=== PATIENT | female | born 1965 | race American Indian/Alaskan Native ===

== ENCOUNTER 2019-06-17 13:52 | Emergency (ER) | payer SELFPAY ==
--- NOTE | 2019-06-17 14:20 | Event Note ---
ED Screening Note Date of service: 06/17/19 Time: 14:18 ED Screening Note: 54 y o f presents with vaginal pain and burning with urination with inability to control her urine This initial assessment/diagnostic orders/clinical plan/treatment(s) is/are subject to change based on patients health status, clinical progression and re- assessment by fellow clinical providers in the ED. Further treatment and workup at subsequent clinical providers discretion. Patient/guardian urged not to elope from the ED as their condition may be serious if not clinically assessed and managed. Initial orders include: ua
[2019-06-17 15:48] LABS: Bacteria,Urine 2+ /HPF (Negative); Bilirubin,Urine NEG (Negative); Blood,Urine LG (Negative); Color,Urine Yellow (Yellow); Mucus,Urine FEW /HPF; Urobilinogen,Urine < 2.0 mg/dL (<2.0)
[2019-06-17 15:51] LABS: WBC,Urine > 182.0 /HPF (0.0-6.0)
[2019-06-17 18:32] VITALS: BP 134/70
--- NOTE | 2019-06-17 18:49 | Emergency Department Report ---
HPI - General Chief Complaint: Urogenital-Female Time Seen by Provider: 06/17/19 17:58 - HPI HPI: 54 yo AA F presents to the ED with the complaint of a 5-6 day history of lower abdominal pain, burning with urination, and very dark urine. She has not taken anything for her symptoms prior to presentation. She denies any fever, nausea, vomiting, back pain. The patient also says she saw as small amount of blood when wiping herself after urinating. No PCP. She has a pmhx of bipolar disorder but says she is not here for mental health issues and "I'm stable." ED Past Medical Hx - Past Medical History Previous Medical History?: Yes Hx Psychiatric Treatment: Yes (Bipolar) Additional medical history: arrhythmia - Surgical History Past Surgical History?: Yes Additional Surgical History: Ectopic - Social History Smoking Status: Current Every Day Smoker Substance Use Type: Prescribed - Medications Home Medications: Home Medications Medication Instructions Recorded Confirmed Last Taken Type Phenazopyridine [Pyridium] 100 mg PO TID #6 tab 06/17/19 Unknown Rx Sulfamethoxazole/Trimethoprim 1 each PO BID #14 tablet 06/17/19 Unknown Rx [Bactrim DS TAB] ED Review of Systems ROS: Stated complaint: PALPITATION/CHEST PX/BURN URINATE Other details as noted in HPI Comment: All other systems reviewed and negative Constitutional: denies: chills, fever Respiratory: denies: shortness of breath Cardiovascular: denies: chest pain Gastrointestinal: abdominal pain. denies: nausea, vomiting Genitourinary: dysuria, hematuria Musculoskeletal: denies: back pain, arthralgia Physical Exam - Physical Exam Vital Signs: Vital Signs 06/17/19 06/17/19 06/17/19 14:00 16:42 17:00 Temperature 98.4 F 98.3 F Pulse Rate 88 82 81 Respiratory 20 18 22 Rate Blood Pressure 139/71 123/67 Blood Pressure 129/80 [Right] O2 Sat by Pulse 98 98 98 Oximetry 06/17/19 06/17/19 17:30 18:00 Temperature Pulse Rate 80 83 Respiratory 22 26 H Rate Blood Pressure 116/63 134/70 Blood Pressure [Right] O2 Sat by Pulse 96 97 Oximetry Physical Exam: GENERAL: The patient is well-developed well-nourished. HEENT: Normocephalic. Atraumatic. Patient has moist mucous membranes. EYES: Extraocular motions are intact. NECK: Supple. Trachea is midline. CHEST/LUNGS: Clear to auscultation. There is no respiratory distress noted. HEART/CARDIOVASCULAR: Regular. There is no tachycardia. ABDOMEN: Abdomen is soft. Mild lower abdominal/suprapubic tenderness to palpation. No guarding. Patient has normal bowel sounds. There is no abdominal distention. SKIN: Skin is warm and dry. NEURO: The patient is awake, alert, and oriented. The patient is cooperative. The patient has no focal neurologic deficits. The patient has normal speech. MUSCULOSKELETAL: There is no tenderness or deformity. There is no evidence of acute injury. ED Course Vital Signs 06/17/19 06/17/19 06/17/19 14:00 16:42 17:00 Temperature 98.4 F 98.3 F Pulse Rate 88 82 81 Respiratory 20 18 22 Rate Blood Pressure 139/71 123/67 Blood Pressure 129/80 [Right] O2 Sat by Pulse 98 98 98 Oximetry 06/17/19 06/17/19 17:30 18:00 Temperature Pulse Rate 80 83 Respiratory 22 26 H Rate Blood Pressure 116/63 134/70 Blood Pressure [Right] O2 Sat by Pulse 96 97 Oximetry ED Medical Decision Making - Medical Decision Making This patient complains of a five-day history of some lower abdominal discomfort, burning with urination and a small amount of blood seen when wiping herself after urinating. Patient has a significant urinary tract infection which is most likely the cause of all of her symptoms. She does not have any flank or back pain, fever, nausea or vomiting with concern for pyelonephritis. Vital signs are stable including being afebrile. Patient has been placed on antibiotics and Pyridium. She has been given referrals for primary care and instructed to follow-up for a repeat urinalysis after finishing her treatment. If she still has blood at that time that she may need to see a urologist. She will return to the ER with any worsening of her symptoms or any acute distress. - Differential Diagnosis UTI, interstitial cystitis, nephrolithiasis Critical Care Time: No Critical care attestation.: If time is entered above; I have spent that time in minutes in the direct care of this critically ill patient, excluding procedure time. ED Disposition Clinical Impression: UTI (urinary tract infection) Qualifiers: Urinary tract infection type: acute cystitis Hematuria presence: with hematuria Qualified Code(s): N30.01 - Acute cystitis with hematuria Hematuria Qualifiers: Hematuria type: unspecified type Qualified Code(s): R31.9 - Hematuria, unspecified Disposition: TO HOME OR SELFCARE Is pt being admited?: No Condition: Stable Instructions: Urinary Tract Infection in Women (ED), Acute Hematuria (ED) Additional Instructions: Please follow up with a primary care physician in the next few days. Return to the ED with any worsening of your symptoms or any acute distress. Take the antibiotics as prescribed. The pyridium, which is a medication for bladder spasm and pain, can make your urine and secretions appear orange-brown. Prescriptions: Sulfamethoxazole/Trimethoprim [Bactrim DS TAB] 1 each PO BID #14 tablet Phenazopyridine [Pyridium] 100 mg PO TID #6 tab Referrals: SARA HUTCHINSON MD [Staff Physician] - 3-5 Days [facility] [Outside] - 3-5 Days Time of Disposition: 18:48
== END 2019-06-17 18:53 | disposition home or self-care (01) ==
LOC: ED 13:52
DX: N39.0 Urinary tract infection, site not specified (principal); F17.200 Nicotine dependence, unspecified, uncomplicated; F31.9 Bipolar disorder, unspecified; Z91.013 Allergy to seafood
CPT/HCPCS: 81001

== ENCOUNTER 2019-09-28 08:53 | Emergency (ER) | payer SELFPAY ==
[2019-09-28 09:35] VITALS: BP 145/74
--- NOTE | 2019-09-28 10:50 | XRay Report ---
CHEST 1 VIEW 09/28/2019 10:28 AM INDICATION / CLINICAL INFORMATION: Chest Pain. COMPARISON: None available. FINDINGS: SUPPORT DEVICES: None. HEART / MEDIASTINUM: No significant abnormality. LUNGS / PLEURA: No significant pulmonary or pleural abnormality. No pneumothorax. ADDITIONAL FINDINGS: No significant additional findings. IMPRESSION: 1. No acute abnormality of the chest. Signer Name: Rolan Acuna MD Signed: 09/28/2019 10:46 AM Workstation Name: [id number]
[2019-09-28 11:29] LABS: Basophils # (Auto) 0.3 K/mm3 (0.0-0.1); Eosinophils # (Auto) 0.2 K/mm3 (0.0-0.4); Eosinophils % (Auto) 1.9 % (0.0-4.3); Hematocrit 40.7 % (30.3-42.9); Hemoglobin 13.5 gm/dl (10.1-14.3); Lymphocytes % (Auto) 21.7 % (13.4-35.0); Mean Corpuscular HGB Conc 33 % (30-34); Mean Corpuscular Volume 81 fl (79-97); Monocytes # (Auto) 0.4 K/mm3 (0.0-0.8); Monocytes % (Auto) 4.3 % (0.0-7.3); Platelet Count 333 K/mm3 (140-440); Red Blood Count 5.04 M/mm3 (3.65-5.03); Red Cell Distribution Width 15.8 % (13.2-15.2)
--- NOTE | 2019-09-28 11:30 | Emergency Department Report ---
ED General Adult HPI - General Chief complaint: Chest Pain Stated complaint: CHEST PAIN Time Seen by Provider: 09/28/19 09:52 Source: patient, EMS Mode of arrival: Wheelchair Limitations: No Limitations - History of Present Illness Initial comments: The patient presents to the emergency department the chief complaint of substernal chest pain that has been present continuously for the last week. Patient describes the pain as tightness and pressure-like without any radiation. Patient denies any nausea vomiting. Patient also complains of some wheezing secondary to asthma states she does not have an albuterol inhaler at home. Patient states her chest pain coincided with the passing of her sister from a heart attack 2 weeks ago. -: Sudden Location: chest Radiation: non-radiation Severity scale (0 -10): 4 Quality: other (pressure) Consistency: constant Improves with: none Worsens with: none Associated Symptoms: denies other symptoms Treatments Prior to Arrival: none - Related Data Previous Rx's Medication Instructions Recorded Last Taken Type Phenazopyridine [Pyridium] 100 mg PO TID #6 tab 06/17/19 Unknown Rx Sulfamethoxazole/Trimethoprim 1 each PO BID #14 tablet 06/17/19 Unknown Rx [Bactrim DS TAB] Albuterol INH(or & Nicu Only) 2 puff IH Q4HR PRN #1 inhalation 09/28/19 Unknown Rx [ProAir HFA Inhaler] Allergies Allergy/AdvReac Type Severity Reaction Status Date / Time shellfish derived Allergy Hives Verified 06/17/19 13:58 ED Review of Systems ROS: Stated complaint: CHEST PAIN Other details as noted in HPI Comment: All other systems reviewed and negative Constitutional: denies: chills, fever Eyes: denies: eye pain, eye discharge, vision change ENT: denies: ear pain, throat pain Respiratory: denies: cough, shortness of breath, wheezing Cardiovascular: chest pain. denies: palpitations Endocrine: no symptoms reported Gastrointestinal: denies: abdominal pain, nausea, diarrhea Genitourinary: denies: urgency, dysuria, discharge Musculoskeletal: denies: back pain, joint swelling, arthralgia Skin: denies: rash, lesions Neurological: denies: headache, weakness, paresthesias Psychiatric: denies: anxiety, depression Hematological/Lymphatic: denies: easy bleeding, easy bruising ED Past Medical Hx - Past Medical History Hx Psychiatric Treatment: Yes (Bipolar) Additional medical history: arrhythmia - Surgical History Additional Surgical History: Ectopic - Social History Smoking Status: Current Every Day Smoker Substance Use Type: None - Medications Home Medications: Home Medications Medication Instructions Recorded Confirmed Last Taken Type Phenazopyridine [Pyridium] 100 mg PO TID #6 tab 06/17/19 Unknown Rx Sulfamethoxazole/Trimethoprim 1 each PO BID #14 tablet 06/17/19 Unknown Rx [Bactrim DS TAB] Albuterol INH(or & Nicu Only) 2 puff IH Q4HR PRN #1 inhalation 09/28/19 Unknown Rx [ProAir HFA Inhaler] ED Physical Exam - General Limitations: No Limitations General appearance: alert, in no apparent distress - Head Head exam: Present: atraumatic, normocephalic - Eye Eye exam: Present: normal appearance, PERRL, EOMI - ENT ENT exam: Present: mucous membranes moist - Neck Neck exam: Present: normal inspection - Respiratory Respiratory exam: Present: wheezes. Absent: respiratory distress - Cardiovascular Cardiovascular Exam: Present: regular rate, normal rhythm. Absent: systolic murmur, diastolic murmur, rubs, gallop - GI/Abdominal GI/Abdominal exam: Present: soft, normal bowel sounds - Extremities Exam Extremities exam: Present: normal inspection - Back Exam Back exam: Present: normal inspection - Neurological Exam Neurological exam: Present: alert, oriented X3, CN II-XII intact. Absent: motor sensory deficit - Psychiatric Psychiatric exam: Present: normal affect, normal mood - Skin Skin exam: Present: warm, dry, intact, normal color. Absent: rash ED Course Vital Signs 09/28/19 09/28/19 09/28/19 09:00 09:30 09:31 Temperature 97.9 F 98.2 F Pulse Rate 80 79 Respiratory 20 17 15 Rate Blood Pressure 136/69 145/74 Blood Pressure 145/74 [Right] O2 Sat by Pulse 95 99 Oximetry 09/28/19 09/28/19 09:45 10:00 Temperature Pulse Rate 76 70 Respiratory 18 16 Rate Blood Pressure 145/74 145/74 Blood Pressure [Right] O2 Sat by Pulse 98 98 Oximetry ED Medical Decision Making - Lab Data Result diagrams: 09/28/19 11:11 09/28/19 11:11 Lab Results 09/28/19 09/28/19 09/28/19 Range/Units 11:11 11:11 11:11 WBC 9.4 (4.5-11.0) K/mm3 RBC 5.04 H (3.65-5.03) M/mm3 Hgb 13.5 (10.1-14.3) gm/dl Hct 40.7 (30.3-42.9) % MCV 81 (79-97) fl MCH 27 L (28-32) pg MCHC 33 (30-34) % RDW 15.8 H (13.2-15.2) % Plt Count 333 (140-440) K/mm3 Lymph % (Auto) 21.7 (13.4-35.0) % Toombs % (Auto) 4.3 (0.0-7.3) % Eos % (Auto) 1.9 (0.0-4.3) % Baso % (Auto) 3.0 H (0.0-1.8) % Lymph # 2.0 (1.2-5.4) K/mm3 Toombs # 0.4 (0.0-0.8) K/mm3 Eos # 0.2 (0.0-0.4) K/mm3 Baso # 0.3 H (0.0-0.1) K/mm3 Seg Neutrophils % 69.1 (40.0-70.0) % Seg Neutrophils # 6.5 (1.8-7.7) K/mm3 PT 14.4 (12.2-14.9) Sec. INR 1.11 (0.87-1.13) APTT 25.8 (24.2-36.6) Sec. Sodium 138 (137-145) mmol/L Potassium 4.8 (3.6-5.0) mmol/L Chloride 105.9 (98-107) mmol/L Carbon Dioxide 25 (22-30) mmol/L Anion Gap 12 mmol/L BUN 8 (7-17) mg/dL Creatinine 0.5 L (0.7-1.2) mg/dL Estimated GFR > 60 ml/min BUN/Creatinine Ratio 16 % Glucose 103 H (65-100) mg/dL Calcium 8.7 (8.4-10.2) mg/dL Total Bilirubin 0.40 (0.1-1.2) mg/dL AST 15 (5-40) units/L ALT 8 (7-56) units/L Alkaline Phosphatase 86 (35-129) units/L Troponin T < 0.010 (0.00-0.029) ng/mL Total Protein 6.6 (6.3-8.2) g/dL Albumin 3.6 L (3.9-5) g/dL Albumin/Globulin Ratio 1.2 % Lipase 21 (13-60) units/L 09/28/19 Range/Units 11:11 WBC (4.5-11.0) K/mm3 RBC (3.65-5.03) M/mm3 Hgb (10.1-14.3) gm/dl Hct (30.3-42.9) % MCV (79-97) fl MCH (28-32) pg MCHC (30-34) % RDW (13.2-15.2) % Plt Count (140-440) K/mm3 Lymph % (Auto) (13.4-35.0) % [place]ombs % (Auto) (0.0-7.3) % Eos % (Auto) (0.0-4.3) % Baso % (Auto) (0.0-1.8) % Lymph # (1.2-5.4) K/mm3 [place]ombs # (0.0-0.8) K/mm3 Eos # (0.0-0.4) K/mm3 Baso # (0.0-0.1) K/mm3 Seg Neutrophils % (40.0-70.0) % Seg Neutrophils # (1.8-7.7) K/mm3 PT (12.2-14.9) Sec. INR (0.87-1.13) APTT (24.2-36.6) Sec. Sodium (137-145) mmol/L Potassium (3.6-5.0) mmol/L Chloride (98-107) mmol/L Carbon Dioxide (22-30) mmol/L Anion Gap mmol/L BUN (7-17) mg/dL Creatinine (0.7-1.2) mg/dL Estimated GFR ml/min BUN/Creatinine Ratio % Glucose (65-100) mg/dL Calcium (8.4-10.2) mg/dL Total Bilirubin (0.1-1.2) mg/dL AST (5-40) units/L ALT (7-56) units/L Alkaline Phosphatase (35-129) units/L Troponin T < 0.010 (0.00-0.029) ng/mL Total Protein (6.3-8.2) g/dL Albumin (3.9-5) g/dL Albumin/Globulin Ratio % Lipase (13-60) units/L - EKG Data -: EKG Interpreted by Me EKG shows normal: sinus rhythm Rate: normal - Radiology Data Radiology results: report reviewed - Medical Decision Making Discussed with the patient that her chest pain likely be due to the increased risk since the passing of her sister 2 weeks ago. Discussed plan of care with patient Critical care attestation.: If time is entered above; I have spent that time in minutes in the direct care of this critically ill patient, excluding procedure time. ED Disposition Clinical Impression: Nonspecific chest pain Disposition: DC- TO HOME OR SELFCARE Is pt being admited?: No Does the pt Need Aspirin: No Condition: Stable Instructions: Noncardiac Chest Pain (ED), Chest Pain (ED) Additional Instructions: return if worse Referrals: PRIMARY MD JENELLE [Primary Care Provider] - 3-5 Days FRANKIE CANTU MD [Staff Physician] - 3-5 Days [facility], [Provider Group] - 3-5 Days [facility] [Provider Group] - 3-5 Days Time of Disposition: 13:30
[2019-09-28 11:37] LABS: INR 1.11 (0.87-1.13); Partial Thromboplastin Time 25.8 Sec. (24.2-36.6)
[2019-09-28 11:51] LABS: Alanine Aminotransferase 8 units/L (7-56); Albumin 3.6 g/dL (3.9-5); BUN/Creatinine Ratio 16; Blood Urea Nitrogen 8 mg/dL (7-17); Calcium 8.7 mg/dL (8.4-10.2); Hemolysis Index 31
[2019-09-28] MEDS ORDERED: INSULIN REGULAR, HUMAN 100 UNITS/1 ML ONE (12:12)
== END 2019-09-28 14:19 | disposition home or self-care (01) ==
LOC: ED 08:53
DX: R07.89 Other chest pain (principal); I49.9 Cardiac arrhythmia, unspecified; F17.200 Nicotine dependence, unspecified, uncomplicated; Z79.899 Other long term (current) drug therapy; Z91.013 Allergy to seafood
CPT/HCPCS: 36415; 71045; 80053; 83690; 84484; 85025; 85610; 85730; 93005; 93010; J1815